=== PATIENT | female | born 1980 | race African-American/Black ===

== ENCOUNTER 2018-04-29 21:18 | Emergency (ER) | payer SELFPAY ==
[~2018-04-29] VITALS: Ht 160 cm; Wt 94.1 kg
[~2018-04-29 21:18] MED LIST: ANTIVERT 25MG25 MG; FLAGYL500 MG PO; HYDROCORT CREAM2.5% TP; MACROBID 1100 MG/CAP PO; NO HOME MEDICATIONS; PEPCID40 MG PO; PHENERGAN 25 TA25 MG PO; ZOFRAN 4MG T4 MG/TAB PO
[2018-04-29 21:32] VITALS: BP 133/80; TEMP 97.6
[2018-04-29] MEDS ORDERED: DOXYCYCLINE 10100 MG PO (23:49)
[2018-04-30 00:08] VITALS: PULSE 80
== END 2018-04-30 00:17 | disposition home or self-care (01) ==
LOC: COL.ER 21:18
DX: J20.9 Acute bronchitis, unspecified (principal); Z88.2 Allergy status to sulfonamides

== ENCOUNTER 2018-12-25 21:55 | Emergency (ER) | payer BC ==
[~2018-12-25] VITALS: Ht 160 cm; Wt 93.2 kg
[~2018-12-25 21:55] MED LIST changes: +DOXYCYCLINE 10100 MG PO
[2018-12-25 23:04] LABS: BASO % 0.5 % (0.0-2.0); EOS % 0.5 % (0-4.0); GRAN # 3.5 (1.4-6.5); GRAN % 54.5 % (42.2-75.2); HEMATOCRIT 42.1 % (37.0-47.0); HEMOGLOBIN 13.5 g/dl (12.5-16.0); LYMPH # 2.2 (1.2-3.4); LYMPH % 34.6 % (20.0-51.0); MEAN CELL VOLUME 79 fl (80.0-100.0); MEAN CORPUSCULAR HEMOGLOBIN 25 pg (27.0-31.0); MEAN CORPUSCULAR HGB CONC 32 g/dl (33.0-37.0); MONO # 0.6 (0.1-0.6); MONO % 9.7 % (1.7-9.3); PLATELET COUNT 201 K/mm3 (130-400); RED BLOOD COUNT 5.31 M/mm3 (4.10-5.30); REDCELL DISTRIBUTION WIDTH-CV 15.6 % (11.5-14.5)
[2018-12-25 23:12] LABS: ALBUMIN 4.4 gm/dL (3.5-5.0); BILIRUBIN,TOTAL 0.3 mg/dL (0.0-1.0); C-REACTIVE PROTEIN 1.1 mg/dL (0.0-0.9); CALCIUM 9.5 mg/dL (8.4-10.2); CREATININE, serum 0.8 (0.52-1.25); POTASSIUM 4.5 mmol/L (3.4-5.0); STREP SCREEN NEGATIVE; TOTAL PROTEIN 8.1 gm/dL (6.4-8.2)
[2018-12-25] MEDS ORDERED: ZITHROMAX Z PA250 MG PO (23:57)
[2018-12-26 00:06] VITALS: BP 153/77; TEMP 97.2
[2018-12-26 00:27] VITALS: PULSE 85
== END 2018-12-26 00:27 | disposition home or self-care (01) ==
LOC: COL.ER 21:55
PROVIDERS: Physician Assistant
DX: J06.9 Acute upper respiratory infection, unspecified (principal)
CPT/HCPCS: J1885; J7040

== ENCOUNTER 2020-05-03 04:07 | Outpatient (CLI) | payer BC ==
[~2020-05-03] VITALS: Ht 160 cm; Wt 92.3 kg
[~2020-05-03 04:07] MED LIST changes: +ZITHROMAX Z PA250 MG PO
[2020-05-03 04:30] VITALS: BP 119/65; PULSE 107; TEMP 98
--- NOTE | 2020-05-03 04:30 | NUR ---
0430 G2L0 37.5 WEEK GEST TO LR4 WITH C/O DECREASED MOVEMENT FOR LAST SEVERAL HOURS. EFM ON WITH FHT'S 140. STATES IS HAVING NO CONTRACTIONS. ADM ASSESSMENT COMPLETED.
[2020-05-03] MEDS ORDERED: PROFERRIN ES12 MG PO (04:31)
[2020-05-03] MEDS ORDERED: LEXAPRO 10MG10 MG PO (04:32)
[2020-05-03] MEDS ORDERED: PRENATAL TABLET PO (04:32)
[2020-05-03 04:34] VITALS: BP 119/65; PULSE 107; TEMP 98
--- NOTE | 2020-05-03 05:15 | NUR ---
0515 PT FEELING BABY MOVE NOW. FHTS 140 WITH ACCELS NOTED AND GOOD VARIABILITY. HAS HAD ONE CONTRACTION ON EFM SINCE ADM AND STATES IS NOT FEELING ANY CONTRACTIONS. DR SERRANO NOTIFIED AND DIMISSAL ORDER GIVEN 0530 HOME WITH INSTRUCTIONS
== END 2020-05-03 05:30 | disposition home or self-care (01) ==
LOC: LDR 04:07 → LDRO 04:07
DX: O36.8130 Decreased fetal movements, third trimester, not applicable or unspecified (principal); Z3A.37 37 weeks gestation of pregnancy
CPT/HCPCS: OP

== ENCOUNTER 2020-05-14 11:06 | Outpatient (CLI) | payer SELFPAY ==
[~2020-05-14] VITALS: Ht 160 cm; Wt 91.8 kg
--- NOTE | 2020-05-14 10:45 | NUR ---
Patient arrives ambulatory with complaints of decreased movement. Patient reports she has not felt baby move today and noticed slightly less movement yesterday. Denies contractions, ROM or vaginal bleeding. Patient changes into gown, EFM explained and placed. VS obtained. Patient anxious upon arrival. Emotional support provided. Dr. Ponce notified by Ajith Amato RN. See physician notification. Patient updated on plan of care. Assessment completed.
--- NOTE | 2020-05-14 10:55 | NUR ---
Audible movement noted by RN.
[2020-05-14 11:00] VITALS: BP 130/82; PULSE 122; TEMP 99.3
--- NOTE | 2020-05-14 11:05 | NUR ---
Patient reports feeling movement. Audible movement noted.
[~2020-05-14 11:06] MED LIST changes: +LEXAPRO 10MG10 MG PO; +PRENATAL TABLET PO; +PROFERRIN ES12 MG PO
[2020-05-14 11:09] VITALS: BP 130/82; PULSE 109; TEMP 99.3
[2020-05-14] MEDS ORDERED: VALTREX 50500 MG/TAB PO (11:19)
[2020-05-14 11:30] VITALS: BP 132/74; PULSE 120
[2020-05-14 11:50] VITALS: BP 123/87; PULSE 102; TEMP 98.9
--- NOTE | 2020-05-14 11:50 | NUR ---
Dr. Ponce notified, see physiican notification. Reviewed FHR strip with Ajith Amato RN and April Muhammad RN. Patient reports normal movement since arrival and denies contractions. Has appt tomorrow. Orders to discharge home recieved, patient agrees to plan of care. Reviewed kick counts and labor precautions. Patient denie questions and will follow up tomorrow at appt.
--- NOTE | 2020-05-14 12:00 | NUR ---
1200- Discharge instructions reviewed with patient who verbalizes understanding. Ambulatory off unit with self to private vehicle.
== END 2020-05-14 12:00 | disposition home or self-care (01) ==
LOC: LDRO 11:06 → LDR 11:23 → LDRO 12:00
DX: O36.8330 Maternal care for abnormalities of the fetal heart rate or rhythm, third trimester, not applicable or unspecified (principal); Z3A.39 39 weeks gestation of pregnancy
CPT/HCPCS: OP

== ENCOUNTER 2020-05-20 03:55 | Inpatient (IN) | payer OTHER ==
[2020-05-20] VITALS (32 sets, daily range): BP systolic 92–158; BP diastolic 46–101; PULSE 87–129; TEMP 97–98
[~2020-05-20] VITALS: Ht 160 cm; Wt 92.3 kg
[~2020-05-20 03:55] MED LIST changes: +VALTREX 50500 MG/TAB PO
--- NOTE | 2020-05-20 04:10 | NUR ---
0410 G2L0 40.1 WEEK GEST TO LR4 WITH C/O SROM AT 0330. EFM ON. HAVING CONTRACTIONS THAT PT STATES ARE VERY PAINFUL. CONTRACTIONS STARTED AT 0330 REGULAR AND HARD AFTER WATER BROKE BUT HAS BEEN JAMI ALL DAY IRREGULARLY. SVE 2/100/-1 WITH POSITIVE AMNIOTRACE. PT VERY VOCAL WITH CONTRACTIONS.
--- NOTE | 2020-05-20 04:45 | NUR ---
0445 UP TO BR AND UA OBTAINED. 0510 IV STARTED AND LAB WORK OBTAINED AND TO LAB. VERY UNCOMFORTABLE WITH CONTRACTIONS. DISCUSSED EPIDURAL BUT DOES NOT WANT ONE AT THIS TIME.
--- NOTE | 2020-05-20 05:20 | NUR ---
0520 READY FOR EPIDURAL. MEDICAL BILLING COORDINATOR NOTIFIED.
[2020-05-20 05:25] LABS: COLLECTION METHOD CLEAN CATCH
[2020-05-20 05:30] LABS: BASO % 0.3 % (0.0-2.0); EOS % 0.3 % (0-4.0); GRAN # 5.5 (1.4-6.5); GRAN % 61.3 % (42.2-75.2); HEMATOCRIT 38.3 % (37.0-47.0); HEMOGLOBIN 12.7 g/dl (12.5-16.0); LYMPH # 2.6 (1.2-3.4); MEAN CELL VOLUME 79 fl (80.0-100.0); MEAN CORPUSCULAR HEMOGLOBIN 26 pg (27.0-31.0); MEAN CORPUSCULAR HGB CONC 33 g/dl (33.0-37.0); MEAN PLATELET VOLUME 13.4 fl (7.4-10.4); MONO # 0.8 (0.1-0.6); MONO % 8.5 % (1.7-9.3); RED BLOOD COUNT 4.86 M/mm3 (4.10-5.30)
[2020-05-20 05:37] LABS: ALBUMIN 3.5 gm/dL (3.5-5.0); BILIRUBIN,TOTAL 0.3 mg/dL (0.0-1.0); CALCIUM 9.2 mg/dL (8.4-10.2); CREATININE, serum 0.57 (0.52-1.25); MUCOUS Present /lpf; PH 6 (5-8); SQUAMOUS EPITHELIAL 0-2 /hpf; TOTAL PROTEIN 6.8 gm/dL (6.4-8.2); URINE APPEARANCE Hazy; URINE BACTERIA Rare /hpf; URINE BILIRUBIN Negative (NEGATIVE); URINE BLOOD 1+ (NEGATIVE); URINE COLOR Yellow; URINE GLUCOSE Negative (NEGATIVE); URINE KETONE Negative (NEGATIVE); URINE LEUKOCYTE ESTERASE Negative (NEGATIVE); URINE NITRATE Negative (NEGATIVE); URINE PROTEIN(semi-quant) Negative (NEGATIVE); URINE RBC 0-2 /hpf; URINE UROBILINOGEN Negative (NEGATIVE)
--- NOTE | 2020-05-20 05:50 | NUR ---
0550 UP TO BR TO VOID
[2020-05-20 06:05] LABS: PLATELET COUNT 173 K/mm3 (130-400)
--- NOTE | 2020-05-20 06:29 | NUR ---
EPIDURAL PLACEMENT BY JANET VALDES. MATERNAL HEART RATE 130S.. PATIENT WL THEN REPOSITIONED X3. FSE PLACED AT 0706 BY Tres PAZ RN. SVE /-
--- NOTE | 2020-05-20 07:45 | NUR ---
PATIENT REPOSITIONED X4, TO KNEE CHEST AT THIS TIME
--- NOTE | 2020-05-20 07:50 | NUR ---
PATIENT TO KNEE CHEST WITH DEEP VARIABLE DURING CONTRACTION
--- NOTE | 2020-05-20 08:03 | NUR ---
DR DONIS AT BEDSIDE. TALKED WITH PATIENT ABOUT PLAN FOR SECTION. PATIENT UNDERSTOOD. PATIENT OFF EFM AND HEADED TO CSECTION AT 0806
--- NOTE | 2020-05-20 10:00 | NUR ---
patient refused covid swab
[2020-05-21] VITALS (7 sets, daily range): BP systolic 108–134; BP diastolic 64–76; PULSE 98–126; TEMP 97.5–98.3
--- NOTE | 2020-05-21 09:27 | NUR ---
Initial visit; Patient occupied with Nurses, Patient thanked Surgical Technologist for looking in on her and offering God's blessings.
--- NOTE | 2020-05-21 16:23 | NUR ---
RN provided patient with breast pump and supplies. Verbal instruction provided and assistance with initially first pumping session provided.
[2020-05-22 02:24] VITALS: BP 128/67; PULSE 111; TEMP 97.3
[2020-05-22 08:00] VITALS: BP 122/87; PULSE 126; TEMP 97.8
[2020-05-22] MEDS ORDERED: PERCOCET 325 MG1 TA2 PO (10:06)
[2020-05-22] MEDS ORDERED: MOTRIN 600600 MG/TAB PO (10:06)
[2020-05-22 17:45] VITALS: BP 106/67; PULSE 111; TEMP 97.7
== END 2020-05-22 19:40 | disposition home or self-care (01) | DRG 787 ==
LOC: LDRO 03:55 → LDR 03:55 → LDRO 04:39 → LDR 04:40 → OB 04:40
PROVIDERS: Student in an Organized Health Care Education/Training Program; ADMIT Obstetrics & Gynecology
PROC: 10D00Z1 Extraction of Products of Conception, Low, Open Approach (ICD-10-PCS; principal; 2020-05-20)
DX: O48.0 Post-term pregnancy (principal); O98.32 Other infections with a predominantly sexual mode of transmission complicating childbirth; Z37.0 Single live birth; O99.02 Anemia complicating childbirth; D64.9 Anemia, unspecified; O99.344 Other mental disorders complicating childbirth; O76 Abnormality in fetal heart rate and rhythm complicating labor and delivery; F32.9 Major depressive disorder, single episode, unspecified; O99.214 Obesity complicating childbirth; E66.9 Obesity, unspecified; A60.00 Herpesviral infection of urogenital system, unspecified; Z3A.40 40 weeks gestation of pregnancy
CPT/HCPCS: J0690; J1885; J2270; J2405; J2590; J7120

== ENCOUNTER 2020-11-26 10:49 | Emergency (ER) | payer OTHER ==
[~2020-11-26] VITALS: Ht 160 cm; Wt 87.7 kg
[~2020-11-26 10:49] MED LIST changes: +MOTRIN 600600 MG/TAB PO; +PERCOCET 325 MG1 TA2 PO
[2020-11-26 11:02] VITALS: TEMP 98.4
[2020-11-26] MEDS ORDERED: AMOXICILLIN875 MG PO (12:06)
[2020-11-26] MEDS ORDERED: FLONASEALLERGY NS (12:06)
[2020-11-26 12:19] VITALS: BP 148/102; PULSE 95
== END 2020-11-26 12:20 | disposition home or self-care (01) ==
LOC: COL.ER 10:49
DX: J01.90 Acute sinusitis, unspecified (principal); F17.200 Nicotine dependence, unspecified, uncomplicated; Z20.822 Contact with and (suspected) exposure to COVID-19

== ENCOUNTER 2021-04-12 19:06 | Emergency (ER) | payer SELFPAY ==
[~2021-04-12] VITALS: Ht 160 cm; Wt 92.7 kg
[~2021-04-12 19:06] MED LIST changes: +AMOXICILLIN875 MG PO; +FLONASEALLERGY NS
[2021-04-12 19:28] VITALS: BP 164/100; PULSE 98; TEMP 98.5
== END 2021-04-12 21:15 | disposition left against medical advice (07) ==
LOC: COL.ER 19:06
DX: R42 Dizziness and giddiness (principal)

== ENCOUNTER 2023-11-15 23:21 | Emergency (ER) | payer MEDICAID ==
[~2023-11-15] VITALS: Ht 160 cm; Wt 104.1 kg
[2023-11-15 23:28] VITALS: TEMP 98.3
[2023-11-15] MEDS ORDERED: diphenhydrAMINE 50 MG/ML 1 ML VIAL IV ONE (23:45)
[2023-11-15] MEDS ORDERED: NS 1,000 ML IV ONE (23:45)
[2023-11-16 00:16] LABS: INR 1.1 (0.8-3.0); PROTHROMBIN TIME 11.5 SECONDS (9.7-12.8)
[2023-11-16 00:19] LABS: BASO % 0.4 % (0.0-2.0); EOS # 0.1 K/mm3 (0.0-0.7); EOS % 1.2 % (0.0-4.0); GRAN % 44.3 % (42.2-75.2); HEMATOCRIT 43.2 % (37.0-47.0); HEMOGLOBIN 13.3 g/dl (12.5-16.0); LYMPH # 3.2 K/mm3 (1.2-3.4); MEAN CELL VOLUME 80 fl (80.0-100.0); MEAN CORPUSCULAR HEMOGLOBIN 25 pg (27-31); MEAN CORPUSCULAR HGB CONC 31 g/dl (33.0-37.0); MEAN PLATELET VOLUME 11.8 fl (7.4-10.4); MONO # 0.5 K/mm3 (0.1-0.6); PARTIAL THROMBOPLASTIN TIME 34.6 SECONDS (26.0-37.0); PLATELET COUNT 238 K/mm3 (130-400); RED BLOOD COUNT 5.41 M/mm3 (4.10-5.30); REDCELL DISTRIBUTION WIDTH-CV 15.4 % (11.5-14.5)
[2023-11-16 00:26] LABS: ALANINE AMINOTRANSFERASE 14 U/L (0-55); ALBUMIN 3.8 g/dL (3.5-5.0); ALKALINE PHOSPHATASE 79 U/L (40-150); ANION GAP 9 mmol/L (7-16); AST,SGOT 14 U/L (5-34); BILIRUBIN,TOTAL 0.2 mg/dL (0.2-1.2); BLOOD UREA NITROGEN 15 mg/dL (7-19); CALCIUM 9.5 mg/dL (8.4-10.2); CHLORIDE 107 mEq/L (98-107); CREATININE, serum 0.87 mg/dL (0.57-1.11); GLUCOSE 95 mg/dL (70-99); SODIUM 141 mEq/L (136-145); TOTAL PROTEIN 7.5 g/dl (6.2-8.1)
[2023-11-16 00:33] LABS: TROPONIN-I < 0.010 ng/mL (0.00-0.033)
[2023-11-16 01:00] VITALS: BP 156/107; PULSE 83
== END 2023-11-16 01:25 | disposition home or self-care (01) ==
LOC: COL.ER 23:21
PROVIDERS: Emergency Medicine
DX: I10 Essential (primary) hypertension (principal); Z79.899 Other long term (current) drug therapy
CPT/HCPCS: J1200; J2765; J7030